=== PATIENT | male | born 1985 | race Caucasian/White ===

== ENCOUNTER 2021-05-19 12:28 | Inpatient (IN) | payer OTHER ==
[2021-05-19] MEDS ORDERED: MAG HYDROX/AL HYDROX/SIMETH 30 ML UNIT-DOSE CUP PO PRN (13:13)
[2021-05-19] MEDS ORDERED: LOPERAMIDE HCL 2 MG CAPSULE PO PRN (13:13)
[2021-05-19] MEDS ORDERED: NICOTINE 10 MG CARTRIDGE (INHALER) IH PRN (13:13)
[2021-05-19] MEDS ORDERED: ACETAMINOPHEN 325 MG TABLET (FP) PO PRN (13:13)
[2021-05-19] MEDS ORDERED: MAGNESIUM HYDROX 2400MG/30ML ORAL SUSPENSION 30 ML CUP PO PRN (13:13)
[2021-05-19] MEDS ORDERED: MENTHOL/PHENOL 1 EACH UD MM PRN (13:13)
[2021-05-19] MEDS ORDERED: MAGNESIUM CITRATE 300 ML BOTTLE PO PRN (13:13)
[2021-05-19] MEDS ORDERED: ONDANSETRON *ODT* 4 MG TABLET SL PRN (13:13)
[2021-05-19 13:38] VITALS: BMI 31.1
[2021-05-19] MEDS ORDERED: BUPRENORPHINE HCL 150 MCG FILM BC ONE (13:59)
[2021-05-19] MEDS ORDERED: BUPRENORPHINE HCL 75 MCG FILM BC ONE (14:00)
[2021-05-19] MEDS ORDERED: cloNIDine HCL 0.1 MG TABLET ONE (14:00)
[2021-05-19] MEDS ORDERED: BUPRENORPHINE HCL 150 MCG, BUPRENORPHINE HCL 75 MCG BC ONE (14:00)
[2021-05-19] MEDS ORDERED: cloNIDine HCL 0.1 MG TABLET PO ONE (14:00)
[2021-05-19] MEDS ORDERED: hydrOXYzine PAMOATE 25 MG CAPSULE (FP) PO ONE (14:00)
[2021-05-19] MEDS: PRENATAL VITAMINS W/ FOLIC ACID TABLET (FP) PO SCH (14:04)
[2021-05-19] MEDS: hydrOXYzine PAMOATE 25 MG CAPSULE (FP) PO SCH ×3 (14:05→22:13)
[2021-05-19] MEDS: NICOTINE 14 MG/24 HOURS TOPICAL PATCH TD SCH (14:05)
[2021-05-19] MEDS: diazePAM 5 MG TABLET PO PRN ×2 (17:56→23:01)
[2021-05-19] MEDS: BISMUTH SUBSALICYLATE 524 MG/30 ML PO PRN ×2 (18:57→22:13)
[2021-05-19] MEDS: METHOCARBAMOL 500 MG TABLET PO PRN (22:13)
[2021-05-19] MEDS: MELATONIN 5 MG TABLETS PO SCH (22:13)
[2021-05-19] MEDS: THIAMINE HCL 100 MG TABLET (FP) PO SCH (22:13)
[2021-05-19] MEDS: IBUPROFEN 400 MG TABLET (FP) PO PRN (22:15)
[2021-05-20] MEDS ORDERED: BUPRENORPHINE HCL 75 MCG FILM BC ONE ×2 (04:32→18:07)
[2021-05-20] MEDS ORDERED: BUPRENORPHINE HCL 150 MCG FILM BC ONE ×2 (04:33→18:08)
[2021-05-20] MEDS: METHOCARBAMOL 500 MG TABLET PO PRN ×2 (04:50→22:26)
[2021-05-20] MEDS: BISMUTH SUBSALICYLATE 524 MG/30 ML PO PRN ×2 (04:51→10:25)
[2021-05-20] MEDS: BUPRENORPHINE HCL 150 MCG, BUPRENORPHINE HCL 75 MCG BC SCH ×2 (05:09→18:08)
[2021-05-20] MEDS: hydrOXYzine PAMOATE 25 MG CAPSULE (FP) PO SCH ×5 (05:10→22:26)
[2021-05-20] MEDS: diazePAM 5 MG TABLET PO PRN ×3 (06:51→22:25)
[2021-05-20] MEDS: PRENATAL VITAMINS W/ FOLIC ACID TABLET (FP) PO SCH (10:25)
[2021-05-20] MEDS: ACETAMINOPHEN 325 MG TABLET (FP) PO PRN ×2 (10:27→22:25)
[2021-05-20] MEDS: NICOTINE 14 MG/24 HOURS TOPICAL PATCH TD SCH (12:17)
[2021-05-20 14:46] LABS: HEMOGLOBIN 13.8 GM/dL (11.7-16.9); MCH 30.7 pg (25.7-33.7); MCHC 33.7 g/dl (32.0-35.9); MEAN PLT VOLUME 9.4 fl (7.5-11.1); PLATELET COUNT 344 10^3/uL (134-434); RDW 14.1 % (11.9-15.9)
[2021-05-20 15:00] LABS: ALBUMIN 4.2 g/dl (3.4-5.0)
[2021-05-20 15:01] LABS: CALCIUM 9.5 mg/dL (8.5-10.1)
[2021-05-20 15:02] LABS: CREATININE 0.9 mg/dL (0.55-1.3)
[2021-05-20 15:04] LABS: BILIRUBIN,TOTAL 0.4 mg/dL (0.2-1)
[2021-05-20] MEDS: cloNIDine HCL 0.1 MG TABLET PO PRN ×2 (18:10→22:25)
[2021-05-20] MEDS: THIAMINE HCL 100 MG TABLET (FP) PO SCH (22:25)
[2021-05-20] MEDS: MELATONIN 5 MG TABLETS PO SCH (22:29)
[2021-05-20] MEDS: SUVOREXANT 10 MG TABLET PO PRN (23:24)
[2021-05-21] MEDS: IBUPROFEN 400 MG TABLET (FP) PO PRN (01:40)
[2021-05-21] MEDS: BISMUTH SUBSALICYLATE 524 MG/30 ML PO PRN ×3 (02:35→16:40)
[2021-05-21] MEDS: diazePAM 5 MG TABLET PO PRN ×2 (04:22→10:27)
[2021-05-21] MEDS: hydrOXYzine PAMOATE 25 MG CAPSULE (FP) PO SCH ×5 (05:42→22:12)
[2021-05-21] MEDS: BUPRENORPHINE HCL 450 MCG FILM BC SCH ×2 (05:42→17:50)
[2021-05-21] MEDS: PRENATAL VITAMINS W/ FOLIC ACID TABLET (FP) PO SCH (10:23)
[2021-05-21] MEDS: ACETAMINOPHEN 325 MG TABLET (FP) PO PRN ×2 (10:25→16:39)
[2021-05-21] MEDS: NICOTINE 14 MG/24 HOURS TOPICAL PATCH TD SCH (11:55)
[2021-05-21 16:09] LABS: SARS-CoV-2 NAA Not Detected (Not Detected)
[2021-05-21] MEDS: MELATONIN 5 MG TABLETS PO SCH (22:12)
[2021-05-21] MEDS: THIAMINE HCL 100 MG TABLET (FP) PO SCH (22:12)
[2021-05-21] MEDS: SUVOREXANT 10 MG TABLET PO PRN (22:12)
[2021-05-21] MEDS: METHOCARBAMOL 500 MG TABLET PO PRN (22:13)
[2021-05-22] MEDS: cloNIDine HCL 0.1 MG TABLET PO PRN ×3 (00:03→17:45)
[2021-05-22] MEDS: BUPRENORPHINE/NALOXONE 4 MG/1 MG FILM PACKET SL SCH ×2 (05:29→17:42)
[2021-05-22] MEDS: hydrOXYzine PAMOATE 25 MG CAPSULE (FP) PO SCH ×4 (05:29→17:45)
[2021-05-22] MEDS: PRENATAL VITAMINS W/ FOLIC ACID TABLET (FP) PO SCH (10:24)
[2021-05-22] MEDS: METHOCARBAMOL 500 MG TABLET PO PRN (10:24)
[2021-05-22] MEDS: NICOTINE 14 MG/24 HOURS TOPICAL PATCH TD SCH (10:24)
[2021-05-22] MEDS: ACETAMINOPHEN 325 MG TABLET (FP) PO PRN (11:29)
[2021-05-22] MEDS: IBUPROFEN 400 MG TABLET (FP) PO PRN (15:50)
[2021-05-22 18:36] VITALS: BP 110/70; PULSE 89; TEMP 97.3
[2021-05-23] MEDS ORDERED: BUPRENORPHINE/NALOXONE 8 MG/2 MG FILM PACKET SL ONE (06:00)
== END 2021-05-22 20:12 | disposition left against medical advice (07) | DRG 770 ==
LOC: YASAS 12:28 → Y3N 14:27
PROVIDERS: ADMIT Allergy & Immunology; ATTEND Allergy & Immunology
PROC: HZ2ZZZZ Detoxification Services for Substance Abuse Treatment (ICD-10-PCS; principal; 2021-05-19)
DX: F11.23 Opioid dependence with withdrawal (principal); F13.20 Sedative, hypnotic or anxiolytic dependence, uncomplicated; F12.10 Cannabis abuse, uncomplicated; F43.10 Post-traumatic stress disorder, unspecified; F41.9 Anxiety disorder, unspecified; F32.A Depression, unspecified; I69.854 Hemiplegia and hemiparesis following other cerebrovascular disease affecting left non-dominant side; Z86.69 Personal history of other diseases of the nervous system and sense organs; Z91.013 Allergy to seafood
CPT/HCPCS: 36415; 80053; 85027; 86780; 93005; 93010; C9803; J0735; U0003; U0005

== ENCOUNTER 2021-08-05 15:27 | Inpatient (IN) | payer OTHER ==
[2021-08-05] MEDS ORDERED: MAGNESIUM HYDROX 2400MG/30ML ORAL SUSPENSION 30 ML CUP PO PRN (16:09)
[2021-08-05] MEDS ORDERED: BISMUTH SUBSALICYLATE 524 MG/30 ML PO PRN (16:09)
[2021-08-05] MEDS ORDERED: IBUPROFEN 400 MG TABLET (FP) PO PRN (16:09)
[2021-08-05] MEDS ORDERED: cloNIDine HCL 0.1 MG TABLET PO ONE (16:09)
[2021-08-05] MEDS ORDERED: BUPRENORPHINE HCL 150 MCG, BUPRENORPHINE HCL 75 MCG BC ONE (16:09)
[2021-08-05] MEDS ORDERED: LOPERAMIDE HCL 2 MG CAPSULE PO PRN (16:09)
[2021-08-05] MEDS ORDERED: BUPRENORPHINE HCL 150 MCG, BUPRENORPHINE HCL 75 MCG BC PRN (16:09)
[2021-08-05] MEDS ORDERED: DICYCLOMINE HCL 10 MG CAPSULE PO PRN (16:09)
[2021-08-05] MEDS ORDERED: BENZOCAINE/MENTHOL (CHLORASEPTIC ) LOZENGE MM PRN (16:09)
[2021-08-05] MEDS ORDERED: MAGNESIUM CITRATE 300 ML BOTTLE PO PRN (16:09)
[2021-08-05] MEDS ORDERED: ACETAMINOPHEN 325 MG TABLET (FP) PO PRN (16:09)
[2021-08-05] MEDS ORDERED: MAG HYDROX/AL HYDROX/SIMETH 30 ML UNIT-DOSE CUP PO PRN (16:09)
[2021-08-05 17:46] VITALS: BMI 33.2
[2021-08-05] MEDS ORDERED: ONDANSETRON *ODT* 4 MG TABLET ONE (18:21)
[2021-08-05] MEDS: ONDANSETRON *ODT* 4 MG TABLET SL PRN (18:24)
[2021-08-05] MEDS ORDERED: BUPRENORPHINE HCL 150 MCG FILM BC ONE (20:51)
[2021-08-05] MEDS ORDERED: BUPRENORPHINE HCL 75 MCG FILM BC ONE (20:52)
[2021-08-05] MEDS ORDERED: hydrOXYzine PAMOATE 25 MG CAPSULE (FP) PO ONE (20:52)
[2021-08-05] MEDS ORDERED: cloNIDine HCL 0.1 MG TABLET ONE (20:52)
[2021-08-05] MEDS: hydrOXYzine PAMOATE 25 MG CAPSULE (FP) PO SCH (20:57)
[2021-08-05] MEDS ORDERED: MELATONIN 5 MG TABLETS PO SCH (22:00)
[2021-08-06] MEDS ORDERED: BUPRENORPHINE HCL 150 MCG, BUPRENORPHINE HCL 75 MCG BC PRN
[2021-08-06] MEDS ORDERED: diazePAM 5 MG TABLET ONE ×2 (00:57→09:33)
[2021-08-06] MEDS ORDERED: hydrOXYzine PAMOATE 25 MG CAPSULE (FP) PO ONE ×3 (00:57→09:30)
[2021-08-06] MEDS: THIAMINE HCL 100 MG TABLET (FP) PO SCH ×2 (01:02→22:40)
[2021-08-06] MEDS: hydrOXYzine PAMOATE 25 MG CAPSULE (FP) PO SCH ×7 (01:02→22:40)
[2021-08-06] MEDS: diazePAM 5 MG TABLET PO PRN ×3 (01:08→22:29)
[2021-08-06] MEDS: PRENATAL VITAMINS W/ FOLIC ACID TABLET (FP) PO SCH ×2 (06:23→10:02)
[2021-08-06] MEDS ORDERED: BUPRENORPHINE HCL 75 MCG FILM BC ONE ×3 (06:26→17:40)
[2021-08-06] MEDS ORDERED: BUPRENORPHINE HCL 150 MCG FILM BC ONE ×3 (06:26→17:39)
[2021-08-06] MEDS: BUPRENORPHINE HCL 150 MCG, BUPRENORPHINE HCL 75 MCG BC SCH ×2 (06:32→17:49)
[2021-08-06 10:03] LABS: HEMATOCRIT 40.7 % (35.4-49); HEMOGLOBIN 13.7 GM/dL (11.7-16.9); MCH 30.5 pg (25.7-33.7); MCHC 33.7 g/dl (32.0-35.9); MEAN CELL VOLUME 90.4 fl (80-96); PLATELET COUNT 308 10^3/uL (134-434); RDW 14.7 % (11.9-15.9); WHITE BLOOD COUNT 6.8 K/mm3 (4.0-10.0)
[2021-08-06] MEDS ORDERED: IBUPROFEN 400 MG TABLET (FP) PO ONE (10:14)
[2021-08-06 10:30] LABS: ALBUMIN 3.5 g/dl (3.4-5.0)
[2021-08-06 10:31] LABS: CALCIUM 9.5 mg/dL (8.5-10.1)
[2021-08-06 10:33] LABS: CREATININE 0.9 mg/dL (0.55-1.3)
[2021-08-06 10:35] LABS: BILIRUBIN,TOTAL 0.6 mg/dL (0.2-1); TOT PROT 6.3 g/dl (6.4-8.2)
[2021-08-06] MEDS: METHOCARBAMOL 500 MG TABLET PO PRN (10:45)
[2021-08-06] MEDS: ONDANSETRON *ODT* 4 MG TABLET SL PRN (10:45)
[2021-08-06] MEDS: cloNIDine HCL 0.1 MG TABLET PO PRN (15:26)
[2021-08-06] MEDS: SUVOREXANT 10 MG TABLET PO PRN (22:29)
[2021-08-06] MEDS: ACETAMINOPHEN 325 MG TABLET (FP) PO PRN (22:30)
[2021-08-07] MEDS: METHOCARBAMOL 500 MG TABLET PO PRN ×2 (01:48→22:13)
[2021-08-07] MEDS: cloNIDine HCL 0.1 MG TABLET PO PRN ×4 (01:48→22:12)
[2021-08-07] MEDS: hydrOXYzine PAMOATE 25 MG CAPSULE (FP) PO SCH ×5 (05:32→22:13)
[2021-08-07] MEDS: BUPRENORPHINE HCL 450 MCG FILM BC SCH ×2 (05:32→18:00)
[2021-08-07] MEDS: diazePAM 5 MG TABLET PO PRN ×2 (07:40→14:24)
[2021-08-07] MEDS: ACETAMINOPHEN 325 MG TABLET (FP) PO PRN ×2 (07:41→14:25)
[2021-08-07] MEDS: ONDANSETRON *ODT* 4 MG TABLET SL PRN (09:38)
[2021-08-07] MEDS: PRENATAL VITAMINS W/ FOLIC ACID TABLET (FP) PO SCH (10:21)
[2021-08-07] MEDS: SUVOREXANT 10 MG TABLET PO PRN (22:11)
[2021-08-07] MEDS: THIAMINE HCL 100 MG TABLET (FP) PO SCH (22:13)
[2021-08-08] MEDS: hydrOXYzine PAMOATE 25 MG CAPSULE (FP) PO SCH ×2 (05:12→10:35)
[2021-08-08] MEDS ORDERED: BUPRENORPHINE/NALOXONE 4 MG/1 MG FILM PACKET SL SCH (06:00)
[2021-08-08 06:19] VITALS: TEMP 97.7
[2021-08-08 09:21] VITALS: BP 146/75; PULSE 84
[2021-08-08] MEDS: PRENATAL VITAMINS W/ FOLIC ACID TABLET (FP) PO SCH (10:35)
[2021-08-09] MEDS ORDERED: BUPRENORPHINE/NALOXONE 8 MG/2 MG FILM PACKET SL ONE (06:00)
== END 2021-08-08 09:53 | disposition home or self-care (01) | DRG 773 ==
LOC: YASAS 15:27 → Y6N 08-06 10:03
PROVIDERS: ADMIT Allergy & Immunology; ATTEND Surgery
PROC: HZ2ZZZZ Detoxification Services for Substance Abuse Treatment (ICD-10-PCS; principal; 2021-08-06)
DX: F11.23 Opioid dependence with withdrawal (principal); F14.10 Cocaine abuse, uncomplicated; F12.10 Cannabis abuse, uncomplicated; F13.10 Sedative, hypnotic or anxiolytic abuse, uncomplicated; F19.280 Other psychoactive substance dependence with psychoactive substance-induced anxiety disorder; F43.10 Post-traumatic stress disorder, unspecified; F41.9 Anxiety disorder, unspecified; Z72.0 Tobacco use; Z86.73 Personal history of transient ischemic attack (TIA), and cerebral infarction without residual deficits; Z86.718 Personal history of other venous thrombosis and embolism; Z91.013 Allergy to seafood
CPT/HCPCS: 36415; 80053; 85027; 86780; C9803-CS; J0735; Q0162; U0003; U0005

== ENCOUNTER 2021-11-18 13:22 | Inpatient (IN) | payer OTHER ==
[2021-11-18 16:21] VITALS: BMI 28.5
[2021-11-18] MEDS ORDERED: BENZOCAINE/MENTHOL (CHLORASEPTIC ) LOZENGE MM PRN (18:42)
[2021-11-18] MEDS ORDERED: ACETAMINOPHEN 325 MG TABLET (FP) PO PRN ×2 (18:42)
[2021-11-18] MEDS ORDERED: MAG HYDROX/AL HYDROX/SIMETH 30 ML UNIT-DOSE CUP PO PRN (18:42)
[2021-11-18] MEDS ORDERED: methaDONE HCL 10 MG TABLET (FOR DETOX USE ONLY) PO ONE (18:42)
[2021-11-18] MEDS ORDERED: DICYCLOMINE HCL 10 MG CAPSULE PO PRN (18:42)
[2021-11-18] MEDS ORDERED: MAGNESIUM CITRATE 300 ML BOTTLE PO PRN (18:42)
[2021-11-18] MEDS ORDERED: MAGNESIUM HYDROX 2400MG/30ML ORAL SUSPENSION 30 ML CUP PO PRN (18:42)
[2021-11-18] MEDS ORDERED: IBUPROFEN 400 MG TABLET (FP) PO PRN (18:42)
[2021-11-18] MEDS ORDERED: NICOTINE POLACRILEX 2 MG GUM BUC PRN (18:42)
[2021-11-18] MEDS ORDERED: LOPERAMIDE HCL 2 MG CAPSULE PO PRN (18:42)
[2021-11-18] MEDS ORDERED: BISMUTH SUBSALICYLATE 524 MG/30 ML PO PRN (18:42)
[2021-11-18] MEDS ORDERED: methaDONE HCL 10 MG TABLET (FOR DETOX USE ONLY) ONE (19:43)
[2021-11-18] MEDS ORDERED: IBUPROFEN 600 MG TABLET (FP) PO ONE (19:43)
[2021-11-18] MEDS: IBUPROFEN 600 MG TABLET (FP) PO PRN (19:48)
[2021-11-18] MEDS: ONDANSETRON *ODT* 4 MG TABLET SL PRN (20:28)
[2021-11-18] MEDS: METHOCARBAMOL 500 MG TABLET PO PRN (22:30)
[2021-11-18] MEDS: cloNIDine HCL 0.1 MG TABLET PO PRN (22:30)
[2021-11-18] MEDS: diazePAM 5 MG TABLET PO SCH (22:30)
[2021-11-18] MEDS: THIAMINE HCL 100 MG TABLET (FP) PO SCH (22:30)
[2021-11-18] MEDS: MELATONIN 5 MG TABLETS PO SCH (22:30)
[2021-11-19] MEDS: diazePAM 5 MG TABLET PO PRN ×2 (03:41→09:14)
[2021-11-19] MEDS: diazePAM 5 MG TABLET PO SCH ×4 (06:15→22:27)
[2021-11-19] MEDS: cloNIDine HCL 0.1 MG TABLET PO PRN (06:16)
[2021-11-19] MEDS: ONDANSETRON *ODT* 4 MG TABLET SL PRN ×2 (09:13→17:34)
[2021-11-19 10:06] LABS: HEMATOCRIT 37.3 % (35.4-49); HEMOGLOBIN 13.1 GM/dL (11.7-16.9); MCH 31.7 pg (25.7-33.7); MEAN CELL VOLUME 90.6 fl (80-96); MEAN PLT VOLUME 9.3 fl (7.5-11.1); PLATELET COUNT 296 10^3/uL (134-434); RBC 4.12 M/mm3 (4.00-5.60); RDW 13.1 % (11.9-15.9)
[2021-11-19] MEDS: PRENATAL VITAMINS W/ FOLIC ACID TABLET (FP) PO SCH (10:16)
[2021-11-19] MEDS: NICOTINE 14 MG/24 HOURS TOPICAL PATCH TD SCH (10:17)
[2021-11-19 10:43] LABS: ALBUMIN 3.8 g/dl (3.4-5.0); BILIRUBIN,TOTAL 0.6 mg/dL (0.2-1); CALCIUM 9.5 mg/dL (8.5-10.1); CREATININE 0.8 mg/dL (0.55-1.3); TOT PROT 6.8 g/dl (6.4-8.2)
[2021-11-19] MEDS: IBUPROFEN 600 MG TABLET (FP) PO PRN (17:34)
[2021-11-19] MEDS: METHOCARBAMOL 500 MG TABLET PO PRN (17:35)
[2021-11-19] MEDS: MELATONIN 5 MG TABLETS PO SCH (22:26)
[2021-11-19] MEDS: THIAMINE HCL 100 MG TABLET (FP) PO SCH (22:26)
[2021-11-19] MEDS: SUVOREXANT 15 MG TABLET PO PRN (22:29)
[2021-11-20] MEDS: ONDANSETRON *ODT* 4 MG TABLET SL PRN ×2 (03:45→18:08)
[2021-11-20] MEDS: diazePAM 5 MG TABLET PO PRN ×3 (03:46→15:54)
[2021-11-20] MEDS: diazePAM 5 MG TABLET PO SCH ×3 (06:02→22:09)
[2021-11-20] MEDS ORDERED: methaDONE HCL 10 MG TABLET (FOR DETOX USE ONLY) PO ONE (10:00)
[2021-11-20] MEDS: NICOTINE 14 MG/24 HOURS TOPICAL PATCH TD SCH (10:30)
[2021-11-20] MEDS: METHOCARBAMOL 500 MG TABLET PO PRN ×2 (10:30→18:08)
[2021-11-20] MEDS: PRENATAL VITAMINS W/ FOLIC ACID TABLET (FP) PO SCH (10:30)
[2021-11-20] MEDS: cloNIDine HCL 0.1 MG TABLET PO PRN ×3 (10:30→23:15)
[2021-11-20] MEDS: SUVOREXANT 15 MG TABLET PO PRN (22:08)
[2021-11-20] MEDS: THIAMINE HCL 100 MG TABLET (FP) PO SCH (22:08)
[2021-11-20] MEDS: MELATONIN 5 MG TABLETS PO SCH (22:08)
[2021-11-20] MEDS: IBUPROFEN 600 MG TABLET (FP) PO PRN (22:10)
[2021-11-21] MEDS: ONDANSETRON *ODT* 4 MG TABLET SL PRN (05:39)
[2021-11-21] MEDS: METHOCARBAMOL 500 MG TABLET PO PRN (05:39)
[2021-11-21] MEDS ORDERED: diazePAM 5 MG TABLET PO SCH (06:00)
[2021-11-21] MEDS: NICOTINE 14 MG/24 HOURS TOPICAL PATCH TD SCH (10:18)
[2021-11-21] MEDS: PRENATAL VITAMINS W/ FOLIC ACID TABLET (FP) PO SCH (10:18)
[2021-11-21] MEDS: diazePAM 5 MG TABLET PO PRN (10:20)
[2021-11-21 12:55] VITALS: BP 119/85; PULSE 84; RESP 18; TEMP 97.7
[2021-11-21] MEDS ORDERED: SUVOREXANT 10 MG TABLET PO PRN (22:00)
[2021-11-22] MEDS ORDERED: diazePAM 5 MG TABLET PO ONE (06:00)
[2021-11-22] MEDS ORDERED: methaDONE HCL 10 MG TABLET (FOR DETOX USE ONLY) PO ONE (10:00)
== END 2021-11-21 16:34 | disposition left against medical advice (07) | DRG 770 ==
LOC: YASAS 13:22 → Y3N 19:45
PROVIDERS: ADMIT Allergy & Immunology; ATTEND Surgery
PROC: HZ2ZZZZ Detoxification Services for Substance Abuse Treatment (ICD-10-PCS; principal; 2021-11-18)
DX: F11.23 Opioid dependence with withdrawal (principal); F10.230 Alcohol dependence with withdrawal, uncomplicated; F13.20 Sedative, hypnotic or anxiolytic dependence, uncomplicated; F12.20 Cannabis dependence, uncomplicated; F17.210 Nicotine dependence, cigarettes, uncomplicated; F19.282 Other psychoactive substance dependence with psychoactive substance-induced sleep disorder; F19.24 Other psychoactive substance dependence with psychoactive substance-induced mood disorder; F41.9 Anxiety disorder, unspecified; F32.A Depression, unspecified; F43.10 Post-traumatic stress disorder, unspecified; F90.9 Attention-deficit hyperactivity disorder, unspecified type
CPT/HCPCS: 36415; 80053; 85027; 86780; 87811; 93005; 93010; C9803-CS; Q0162; U0003; U0005